=== PATIENT | female | born 1935 | race Hispanic/Latino ===

== ENCOUNTER 2017-03-06 13:54 | Emergency (ER) | payer MEDICARE ==
[~2017-03-06] VITALS: Ht 157.5 cm; Wt 80.3 kg
--- NOTE | 2017-03-06 17:09 | Diagnostic Imaging Report ---
PROCEDURE: A single AP view of the chest. COMPARISON: None. INDICATIONS: ABDOMINAL PAIN, GAS FINDINGS: Lines/tubes: None. Lungs: Lungs are well-inflated. Subtle groundglass opacities in the lateral right midlung and lateral right lung base. Asymmetrically increased ground glass opacities in the left lung base. Pleura: There is no pleural effusion or pneumothorax. Heart and mediastinum: The heart and the mediastinum are unremarkable. Atherosclerotic calcifications in the aorta. Bones: No acute bony abnormality. IMPRESSION: Left lower lobe pneumonia. Questionable additional foci in the right midlung and right lung base. Dictated by: Stone Antony M.D. on 03/06/2017 at 17:18 Electronically approved by: Stone Antony M.D. on 03/06/2017 at 17:18
--- NOTE | 2017-03-06 17:10 | Diagnostic Imaging Report ---
PROCEDURE:X-RAY ABDOMEN - KUB COMPARISON:None. INDICATIONS:ABDOMINAL PAIN, GAS FINDINGS: There are no dilated loops of bowel to suggest obstruction. Moderate amount of stool in the colon. There are no masses or abnormal calcifications. There is no evidence of free air. No acute osseous abnormalities are present. 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 Mild degenerative changes in bilateral SI joints. CONCLUSION: Moderate amount stool in the colon. No dilated small bowel loops. Dictated by: Stone Antony M.D. on 03/06/2017 at 17:19 Electronically approved by: Stone Antony M.D. on 03/06/2017 at 17:19
[2017-03-06 17:49] LABS: BILIRUBIN,URINE NEGATIVE (NEGATIVE); KETONES,URINE NEGATIVE (NEGATIVE); LEUKOCYTE ESTERASE ,URINE TRACE (NEGATIVE); NITRITE,URINE NEGATIVE (NEGATIVE); PROTEIN,URINE DIPSTICK NEGATIVE (NEGATIVE); URINE UROBILINOGEN 0.2 mg/dL (0.2 - 1)
[2017-03-06 17:49] LABS: BASOPHILS % 0.3 % (0.0-1.0); EOSINOPHILS # (AUTO) 0.1 (0.0-0.4); EOSINOPHILS % 1.2 % (0.0-6.0); HEMATOCRIT 46.1 % (34.2-44.1); LYMPHOCYTES # (AUTO) 2.1 (1.0-3.2); MEAN CORPUSCULAR HEMOGLOBIN 29.2 pg (28-32); MEAN CORPUSCULAR HGB CONC 32.5 g/dL (31-35); MEAN CORPUSCULAR VOLUME 89.7 fL (81-99); MONOCYTES # (AUTO) 0.5 (0.2-0.8); MONOCYTES % 6.4 % (4.4-11.3); NEUTROPHILS # (AUTO) 4.9 (2.1-6.9); NEUTROPHILS % 63.8 % (38.7-80.0); PLATELET COUNT 199 x10e3/uL (140-360); RED BLOOD COUNT 5.14 x10e6/uL (3.6-5.1); RED CELL DISTRIBUTION WIDTH 13.4 % (11.7-14.4)
[2017-03-06 17:51] LABS: CLARITY,URINE CLEAR (CLEAR); COLOR,URINE YELLOW (YELLOW)
[2017-03-06 17:56] LABS: INR 0.93; PROTHROMBIN TIME 12.9 seconds (11.9-14.5)
[2017-03-06 17:57] LABS: PARTIAL THROMBOPLASTIN TIME 28.5 seconds (23.8-35.5)
[2017-03-06 18:02] LABS: BACTERIA,URINE FEW /HPF; EPITHELIAL CELLS,URINE FEW /LPF; RBC,URINE 0-5 /HPF (0-5); WBC,URINE (MAN) 0-5 /HPF (0-5)
[2017-03-06 18:03] LABS: ALBUMIN 4.4 g/dL (3.5-5.0); ANION GAP 13.5 mmol/L (8-16); CALCIUM 9.8 mg/dL (8.4-10.2); CREATININE, SERUM 0.9 mg/dL (0.57-1.11); POTASSIUM 3.5 mmol/L (3.5-5.1)
[2017-03-06 18:09] LABS: CREATINE KINASE MB 2.3 ng/mL (0.00-5.00); TROPONIN I 0.002 ng/mL (0-0.300)
[2017-03-06] MEDS ORDERED: ONDANSETRON HCL 4 MG ORAL DISINTEGRATING TAB ONE ×3 (20:21→20:24)
[2017-03-06] MEDS ORDERED: ONDANSETRON HCL 4 MG ORAL DISINTEGRATING TAB PO ONE (20:30)
== END 2017-03-06 20:32 | disposition home or self-care (01) ==
LOC: ER 13:54
DX: K21.9 Gastro-esophageal reflux disease without esophagitis (principal); R11.0 Nausea; J18.9 Pneumonia, unspecified organism; I10 Essential (primary) hypertension; E11.9 Type 2 diabetes mellitus without complications
CPT/HCPCS: 36415; 71010; 74000; 80053; 81001; 82550; 82553; 83690; 83880; 84484; 85025; 85610; 85730; 87086; 93005; 99284